=== PATIENT | male | born 1960 | race Asian ===

== ENCOUNTER 2017-01-28 05:09 | Day surgery (SDC) | payer BC ==
[~2017-01-28] VITALS: Ht 170.2 cm; Wt 72.5 kg
[2017-01-28] MEDS ORDERED: NO MEDS PER PT (06:03)
[2017-01-28] MEDS ORDERED: LACTATED RINGERS 1,000 ML IV SCH (06:03)
[2017-01-28 06:04] VITALS: BP 120/92
[2017-01-28] MEDS ORDERED: ROPIvacaine/PF 0.5%, 30 ML ONE (06:16)
[2017-01-28] MEDS ORDERED: LIDOCAINE 1%-EPI 1:100K, 50ML ONE (06:16)
[2017-01-28] MEDS ORDERED: FENTANYL PF 250 MCG/5ML ONE (06:45)
[2017-01-28] MEDS ORDERED: MIDAZOLAM 1 MG/ML, 2ML ONE (06:45)
[2017-01-28] MEDS ORDERED: BUPIVACAINE/PF-EPI 0.25% 1:200K ONE (06:47)
[2017-01-28] MEDS ORDERED: METOCLOPRAMIDE 5 MG/ML, 2ML ONE (07:06)
[2017-01-28] MEDS ORDERED: ONDANSETRON 2MG/ML, 2ML ONE (07:06)
[2017-01-28] MEDS ORDERED: DEXAMETHASONE 4 MG/ML, 1ML ONE (07:06)
[2017-01-28] MEDS ORDERED: PROPOFOL 10 MG/ML, 20ML ONE (07:06)
[2017-01-28] MEDS ORDERED: CEFAZOLIN 1,000 MG ONE (07:06)
[2017-01-28] MEDS ORDERED: KETOROLAC 30 MG/1 ML ONE (07:06)
[2017-01-28] MEDS ORDERED: KETAMINE 10 MG/ML, 20ML ONE (07:21)
[2017-01-28] MEDS ORDERED: ACETAMINOPHEN 325 MG TABLET PO PRN (08:00)
[2017-01-28] MEDS ORDERED: PROMETHAZINE 25 MG/ML, 1ML IV PRN (08:00)
[2017-01-28] MEDS ORDERED: ONDANSETRON 2MG/ML, 2ML IVPush PRN (08:00)
[2017-01-28] MEDS ORDERED: MEPERIDINE/PF 25MG/0.5ML IVPush PRN (08:00)
[2017-01-28] MEDS ORDERED: OXYcodone 5 MG/5 ML ORAL.SOL UDC PO PRN (08:00)
[2017-01-28] MEDS ORDERED: hydrALAzine 20 MG/ML, 1ML IV PRN (08:00)
[2017-01-28] MEDS ORDERED: FENTANYL PF 100 MCG/2ML IV PRN (08:00)
[2017-01-28] MEDS ORDERED: HYDROmorphone 1 MG/ML, 1ML IV PRN (08:00)
[2017-01-28] MEDS ORDERED: LABETALOL 5MG/ML, 20ML IV PRN (08:00)
[2017-01-28] MEDS ORDERED: ACETAMINOPHEN 325 MG TABLET ONE (09:13)
[2017-01-28] MEDS ORDERED: OXYcodone 5 MG/5 ML ORAL.SOL UDC ONE ×2 (09:13→09:19)
[2017-01-28] MEDS ORDERED: FENTANYL PF 100 MCG/2ML ONE (09:19)
[2017-01-28] MEDS ORDERED: hydrALAzine 20 MG/ML, 1ML ONE (09:46)
== END 2017-01-28 13:00 | disposition home or self-care (01) ==
LOC: OUT 05:09
PROVIDERS: ATTEND Orthopaedic Surgery
DX: S83.511A Sprain of anterior cruciate ligament of right knee, initial encounter (principal); S83.411A Sprain of medial collateral ligament of right knee, initial encounter; S83.281A Other tear of lateral meniscus, current injury, right knee, initial encounter; M65.861 Other synovitis and tenosynovitis, right lower leg; X58.XXXA Exposure to other specified factors, initial encounter; Y93.23 Activity, snow (alpine) (downhill) skiing, snowboarding, sledding, tobogganing and snow tubing; Y92.9 Unspecified place or not applicable; Y99.9 Unspecified external cause status
CPT/HCPCS: 27427; 29881; 29888; 73560; 76000; J0360; J0690; J1100; J1885; J2250; J2405; J2704; J2765; J2795; J3010; J7120; C1713; C1762